=== PATIENT | male | born 1970 | race Caucasian/White ===

== ENCOUNTER → 2021-01-25 | Outpatient (CLI) | payer BC, OTHER ==
[~2021-01-25] MED LIST: DIGOX250 MCG PO; DILTIAZEM ER360 MG PO; FISH OIL 1,0001 EAC5 PO; FUROSEMIDE40 MG PO; GLUCOPHAGE500 MG PO; IRBESARTAN-HCT1 EAC1 PO; JANTOVEN6 MG PO; LEVEMIR100 UNIT/1 SQ; LOVENOX120 MG/0.8 SQ; NEXIUM20 MG PO; NOVOLOG 10100 UNITS/ INJ
== END ==
LOC: CT 09:30
DX: C61 Malignant neoplasm of prostate (principal); E11.9 Type 2 diabetes mellitus without complications; N50.82 Scrotal pain; Z79.01 Long term (current) use of anticoagulants
CPT/HCPCS: Q9967

== ENCOUNTER → 2021-01-30 | Outpatient (CLI) | payer BC, OTHER | LOC: NM 09:15 | DX: C61 Malignant neoplasm of prostate (principal); M89.8X9 Other specified disorders of bone, unspecified site | CPT/HCPCS: 78306; A9503 ==

== ENCOUNTER → 2021-10-17 | Outpatient (CLI) | payer BC | LOC: CT 09:56 | DX: C61 Malignant neoplasm of prostate (principal); E11.9 Type 2 diabetes mellitus without complications; E78.5 Hyperlipidemia, unspecified; Z79.01 Long term (current) use of anticoagulants | CPT/HCPCS: Q9967 ==

== ENCOUNTER → 2021-10-24 | Outpatient (CLI) | payer BC | LOC: NM 08:50 | DX: C61 Malignant neoplasm of prostate (principal); E78.5 Hyperlipidemia, unspecified; E11.8 Type 2 diabetes mellitus with unspecified complications; Z79.01 Long term (current) use of anticoagulants | CPT/HCPCS: 78306; A9503 ==